=== PATIENT | male | born 1945 | race Caucasian/White ===

== ENCOUNTER 2017-06-19 14:00 | Observation (INO) | payer MEDICARE, OTHER ==
[~2017-06-19] VITALS: Ht 180.3 cm; Wt 96.7 kg
[2017-06-19] VITALS (7 sets, daily range): BP systolic 118–146; BP diastolic 67–82; PULSE 47–71; RESP 16–20; TEMP 97.7–99.3; O2SAT 88–97
[~2017-06-19 14:00] MED LIST: ALPR0.5T3 PO; CYMB30CA PO; DOFE250 PO; DONE10TA14 PO; GABA400C5 PO; METO25 PO; RIVA20 PO; SIMV5TAB3 PO; VITA100017 PO; VITATAB25 PO; ZOLP10TA3 PO
[2017-06-19] MEDS ORDERED: SODIUM CHLORIDE 0.9% FLUSH 10 ML FLUSH IVF PRN (14:30)
--- NOTE | 2017-06-19 14:31 | PD ---
HPI Chief Complaint: OD/ Ingestion Time Seen by Provider: 14:26 Travel History International Travel<30 days: No Contact w/Intl Traveler<30days: No Traveled to known affect area: No History of Present Illness HPI 61-year-old male patient with history dementia, presents to the ER today brought in by his because she states that he is more disoriented and sleepy this morning and thinks that he may have taken 3 doses of his evening medications which include Ambien, Xanax, accidentally last night. She states it would've been after 11 but she cannot confirm what time he would've taken it. She noticed that his evening medications for the next 3 days are missing. He currently does not have any significant complaints, chest pains, shortness of breath, dizziness, or other symptoms. Modifying Factors: None Associated Signs & Symptoms: Altered mental status, possible medication overdose Risk Factors: Elderly, dementia PFSH Past Medical History Arthritis: No Asthma: Yes Atrial Fibrillation: Yes (and atrial flutter) Autoimmune Disease: No Anxiety: No Depression: No Cancer: No Cardiovascular Problems: Yes (HX A-FIB) High Cholesterol: Yes Chest Pain: Yes Congestive Heart Failure: No COPD: No Cerebrovascular Accident: No Dementia: Yes Diabetes: No Diminished Hearing: Yes ([employer] HEARING AIDES) Endocrine: No Gastrointestinal Disorders: No GERD: No Gout: Yes Genitourinary: No Hiatal Hernia: Yes Herniated Disk: Yes (lumbar) Hypertension: Yes Immune Disorder: No Insomnia: Yes Musculoskeletal: Yes Neurologic: No Psychiatric: No Reproductive: No Respiratory: No Immunizations Current: Yes Migraines: No Radiation Therapy: No Seizures: No Sleep Apnea: No Thyroid Disease: No Ulcer: Yes Past Surgical History Abdominal Surgery: No Cardiac Surgery: Yes (ABLATION) Ear Surgery: No Endocrine Surgery: No Genitourinary Surgery: No Neurologic Surgery: Yes (L3-4 L4-5 S1 FUSION NOVEMBER 27) Oral Surgery: No Pacemaker: No Thoracic Surgery: Yes (LEFT LOWER LOBE REMOVED) Other Surgery: Yes (Spleen removal, portion of colon, portion L Lung) Social History Alcohol Use: Yes (2-3 BEERS NIGHTLY; 12/09/15) Tobacco Use: No (QUIT ) Substance Use: No Allergies-Medications (Allergen,Severity, Reaction): Coded Allergies: benazepril (Unverified Allergy, Severe, ANGIOEDEMA, 06/19/17) captopril (Unverified Allergy, Severe, ANGIOEDEMA, 06/19/17) enalaprilat (Unverified Allergy, Severe, ANGIOEDEMA, 06/19/17) fosinopril (Unverified Allergy, Severe, ANGIOEDEMA, 06/19/17) lisinopril (Unverified Allergy, Severe, ANGIOEDEMA, 06/19/17) penicillin G (Unverified Allergy, Severe, Anaphylaxis, 06/19/17) quinapril (Unverified Allergy, Severe, ANGIOEDEMA, 06/19/17) Reported Meds & Prescriptions Reported Meds & Active Scripts Active Reported Vitamin B-1 (Thiamine HCl) 100 Mg Tab 100 Mg PO DAILY Vitamin D3 (Cholecalciferol) 1,000 Unit Tab 1,000 Units PO DAILY Gabapentin 600 Mg Tab 1,200 Mg PO HS Duloxetine DR (Duloxetine HCl) 60 Mg Capdr 60 Mg PO DAILY Ambien (Zolpidem Tartrate) 10 Mg Tab 10 Mg PO HS Alprazolam 0.5 Mg Tab 0.5 Mg PO HS Folic Acid 0.8 Mg Tab 800 Mcg PO DAILY Xarelto (Rivaroxaban) 20 Mg Tab 20 Mg PO DAILY Simvastatin 20 Mg Tab 20 Mg PO DAILY Furosemide 40 Mg Tab 40 Mg PO DAILY PRN Amantadine (Amantadine HCl) 100 Mg Tab 100 Mg PO DAILY Vitamin C (Ascorbic Acid) 250 Mg Chew 250 Mg CHEW DAILY Diltiazem CD 24 HR 240 Mg Caper 240 Mg PO DAILY Metoprolol Tartrate 25 Mg Tab 25 Mg PO BID Review of Systems ROS Limitations: Altered Mental Status (history is as per ) Physical Exam Narrative GENERAL: Well-developed elderly white male patient currently in mild distress. Awake and oriented 1. SKIN: Focused skin assessment warm/dry. HEAD: Atraumatic. Normocephalic. EYES: Pupils equal and round. No scleral icterus. No injection or drainage. ENT: No nasal bleeding or discharge. Mucous membranes pink and moist. NECK: Trachea midline. No JVD. CARDIOVASCULAR: Regular rate and rhythm. No murmur appreciated. RESPIRATORY: No accessory muscle use. Clear to auscultation. Breath sounds equal bilaterally. GASTROINTESTINAL: Abdomen soft, non-tender, nondistended. Hepatic and splenic margins not palpable. MUSCULOSKELETAL: No obvious deformities. No clubbing. No cyanosis. No edema. NEUROLOGICAL: Awake and alert. No obvious cranial nerve deficits. Motor grossly within normal limits. Normal speech. PSYCHIATRIC: Appropriate mood and affect; insight and judgment poor. Data Data Last Documented VS Vital Signs Date Time Temp Pulse Resp B/P (MAP) Pulse Ox O2 Delivery O2 Flow Rate FiO2 06/19/17 17:15 47 18 118/67 (84) 94 Room Air 06/19/17 14:50 2.00 06/19/17 14:05 97.7 Orders Orders Electrocardiogram (06/19/17 14:26) Complete Blood Count With Diff (06/19/17 14:26) Comprehensive Metabolic Panel (06/19/17 14:26) Urinalysis - C+S If Indicated (06/19/17 14:) Chest, Single Ap (06/19/17 14:26) Ct Brain W/O Iv Contrast(Rout) (06/19/17 14:26) Iv Access Insert/Monitor (06/19/17 14:26) Ecg Monitoring (06/19/17 14:26) Oximetry (06/19/17 14:26) Sodium Chloride 0.9% Flush (Ns Flush) (06/19/17 14:30) Call Poison Control (06/19/17 14:26) Drug Screen, Random Urine (06/19/17 14:26) Alcohol (Ethanol) (06/19/17 14:26) Salicylates (Aspirin) (06/19/17 14:26) Tylenol (Acetaminophen) (06/19/17 14:26) B-Type Natriuretic Peptide (06/19/17 14:56) Labs Laboratory Tests Test 06/19/17 14:35 06/19/17 16:32 White Blood Count 12.5 TH/MM3 Red Blood Count 3.66 MIL/MM3 Hemoglobin 12.7 GM/DL Hematocrit 37.4 % Mean Corpuscular Volume 102.0 FL Mean Corpuscular Hemoglobin 34.7 PG Mean Corpuscular Hemoglobin Concent 34.0 % Red Cell Distribution Width 12.0 % Platelet Count 196 TH/MM3 Mean Platelet Volume 9.5 FL Neutrophils (%) (Auto) 71.5 % Lymphocytes (%) (Auto) 13.4 % Monocytes (%) (Auto) 13.7 % Eosinophils (%) (Auto) 0.8 % Basophils (%) (Auto) 0.6 % Neutrophils # (Auto) 8.9 TH/MM3 Lymphocytes # (Auto) 1.7 TH/MM3 Monocytes # (Auto) 1.7 TH/MM3 Eosinophils # (Auto) 0.1 TH/MM3 Basophils # (Auto) 0.1 TH/MM3 CBC Comment DIFF FINAL Differential Comment Blood Urea Nitrogen 13 MG/DL Creatinine 0.97 MG/DL Random Glucose 101 MG/DL Total Protein 7.4 GM/DL Albumin 3.5 GM/DL Calcium Level 8.6 MG/DL Alkaline Phosphatase 66 U/L Aspartate Amino Transf (AST/SGOT) 27 U/L Alanine Aminotransferase (ALT/SGPT) 47 U/L Total Bilirubin 0.9 MG/DL Sodium Level 138 MEQ/L Potassium Level 4.2 MEQ/L Chloride Level 105 MEQ/L Carbon Dioxide Level 25.2 MEQ/L Anion Gap 8 MEQ/L Estimat Glomerular Filtration Rate 77 ML/MIN B-Type Natriuretic Peptide 208 PG/ML Salicylates Level LESS THAN 1.7 MG/DL Acetaminophen Level LESS THAN 2.0 MCG/ML Ethyl Alcohol Level LESS THAN 3 MG/DL Urine Color STRAW Urine Turbidity CLEAR Urine pH 6.0 Urine Specific Ne[place] 1.012 Urine Protein NEG mg/dL Urine Glucose (UA) NEG mg/dL Urine Ketones NEG mg/dL Urine Occult Blood NEG Urine Nitrite NEG Urine Bilirubin NEG Urine Leukocyte Esterase NEG Urine Squamous Epithelial Cells 0-5 /hpf Microscopic Urinalysis Comment CULT NOT INDICATED Urine Opiates Screen NEG Urine Barbiturates Screen NEG Urine Amphetamines Screen NEG Urine Benzodiazepines Screen POS Urine Cocaine Screen NEG Urine Cannabinoids Screen NEG MDM Medical Decision Making Medical Screen Exam Complete: Yes Emergency Medical Condition: Yes Medical Record Reviewed: Yes Interpretation(s) EKG shows 9 this bradycardia at a rate of 50 bpm. No signs of acute ST-T changes. Laboratory Tests Test 06/19/17 14:35 06/19/17 16:32 White Blood Count 12.5 TH/MM3 (4.0-11.0) Red Blood Count 3.66 MIL/MM3 (4.50-5.90) Hemoglobin 12.7 GM/DL (13.0-17.0) Hematocrit 37.4 % (39.0-51.0) Mean Corpuscular Volume 102.0 FL (80.0-100.0) Mean Corpuscular Hemoglobin 34.7 PG (27.0-34.0) Neutrophils (%) (Auto) 71.5 % (16.0-70.0) Monocytes (%) (Auto) 13.7 % (0.0-8.0) Neutrophils # (Auto) 8.9 TH/MM3 (1.8-7.7) Monocytes # (Auto) 1.7 TH/MM3 (0-0.9) Estimat Glomerular Filtration Rate 77 ML/MIN (>89) B-Type Natriuretic Peptide 208 PG/ML (0-100) Salicylates Level LESS THAN 1.7 MG/DL Acetaminophen Level LESS THAN 2.0 MCG/ML Urine Benzodiazepines Screen POS (NEG) Last [address] 06/19/171425 Signed Impressions: Service Date/Time: Monday, June 19, 2017 14:40 - CONCLUSION: No acute intracranial disease. Prasad Kelly MD Chest X-Ray 06/19/171425 Signed Impressions: Service Date/Time: Monday, June 19, 2017 14:33 - CONCLUSION: Interstitial densities could be interstitial edema. Prasad Kelly MD Differential Diagnosis Altered mental status, possible overdose: Rule out coingestions versus dehydration versus metabolic issues versus acute intracranial processes Narrative Course Chest x-ray shows interstitial densities which could present some underlying interstitial edema. However, his BNP is 200. Lab work was otherwise unremarkable. Vital signs do show that he is bradycardic in the ER. Case was discussed with poison control and they state that he should be managed supportively. My plan would be to admit him as an observation for further evaluation. Case was discussed with Dr. George for admission. Diagnosis Primary Impression: Altered mental status Additional Impression: Accidental overdose Admitting Information Admitting Physician Requests: Admit Condition: Stable Celia Greenfield MD Jun 19, 2017 14:31
[2017-06-19] MEDS ORDERED: ALPR0.5T3 PO (14:33)
[2017-06-19] MEDS ORDERED: METO25TA3 PO (14:33)
[2017-06-19] MEDS ORDERED: VITA250C3 CHEW (14:33)
[2017-06-19] MEDS ORDERED: FURO40TA PO (14:33)
[2017-06-19] MEDS ORDERED: FOLI800T PO (14:33)
[2017-06-19] MEDS ORDERED: VITA100064 PO (14:33)
[2017-06-19] MEDS ORDERED: DULO1CAP3 PO (14:33)
[2017-06-19] MEDS ORDERED: XARE20TA PO (14:33)
[2017-06-19] MEDS ORDERED: AMAN100T PO (14:33)
[2017-06-19] MEDS ORDERED: SIMV20TA PO (14:33)
[2017-06-19] MEDS ORDERED: GABA600T PO (14:33)
[2017-06-19] MEDS ORDERED: AMBI10TA PO (14:33)
[2017-06-19] MEDS ORDERED: VITA100T54 PO (14:33)
[2017-06-19] MEDS ORDERED: DILT240C44 PO (14:33)
--- NOTE | 2017-06-19 14:49 | RADRPT ---
EXAM DATE/TIME: 06/19/2017 14:33 [facility] COMPARISON: CHEST SINGLE AP, December 10, 2015, 12:20. INDICATIONS : Short of breath MEDICAL HISTORY : Hypertension. Atrial fibrillation. Asthma SURGICAL HISTORY : Lobectomy. Cardiac ablation ENCOUNTER: Initial ACUITY: 1 day PAIN SCORE: 0/10 LOCATION: Bilateral chest FINDINGS: A single view of the chest demonstrates the lungs to be symmetrically aerated without evidence of mas s, infiltrate or effusion. Interstitial densities. Elevation left hemidiaphragm again seen. The card iomediastinal contours are unremarkable. Osseous structures are intact. CONCLUSION: Interstitial densities could be interstitial edema. Prasad Kelly MD on June 19, 2017 at 14:46 Board Certified Radiologist. This report was verified electronically.
--- NOTE | 2017-06-19 14:52 | RADRPT ---
EXAM DATE/TIME: 06/19/2017 14:40 [facility] COMPARISON: No previous studies available for comparison. INDICATIONS : Altered mental status after taking medications. RADIATION DOSE: 60.69 CTDIvol (mGy) MEDICAL HISTORY : Hypertension. Dementia. SURGICAL HISTORY : Splenectomy. Portion of colon removed. Portion of lung removed. Cardiac ablation. ENCOUNTER: Initial ACUITY: 1 day PAIN SCALE: 0/10 LOCATION: cranial TECHNIQUE: Multiple contiguous axial images were obtained of the head. Using automated exposure control and adj ustment of the mA and/or kV according to patient size, radiation dose was kept as low as reasonably a chievable to obtain optimal diagnostic quality images. DICOM format image data is available electro nically for review and comparison. FINDINGS: CEREBRUM: The ventricles are normal for age. No evidence of midline shift, mass lesion, hemorrhage or acute in farction. No extra-axial fluid collections are seen. POSTERIOR FOSSA: The cerebellum and brainstem are intact. The 4th ventricle is midline. The cerebellopontine angle i s unremarkable. EXTRACRANIAL: The visualized portion of the orbits is intact. SKULL: The calvaria is intact. No evidence of skull fracture. CONCLUSION: No acute intracranial disease. Prasad Kelly MD on June 19, 2017 at 14:49 Board Certified Radiologist. This report was verified electronically.
[2017-06-19 14:58] LABS: CHLORIDE 105 MEQ/L (98-107); POTASSIUM 4.2 MEQ/L (3.5-5.1); SODIUM (NA) 138 MEQ/L (136-145)
[2017-06-19 14:59] LABS: AUTOMATED NEUTROPHIL # 8.9 TH/MM3 (1.8-7.7); BASOPHIL # 0.1 TH/MM3 (0-0.2); BASOPHIL % 0.6 % (0.0-2.0); EOSINOPHIL # 0.1 TH/MM3 (0-0.4); EOSINOPHIL % 0.8 % (0.0-4.0); HEMATOCRIT 37.4 % (39.0-51.0); HEMO FLAGS DIFF FINAL; LYMPH % 13.4 % (9.0-44.0); LYMPHOCYTE # 1.7 TH/MM3 (1.0-4.8); MEAN CORPUSCULAR HEMOGLOBIN 34.7 PG (27.0-34.0); MONO % 13.7 % (0.0-8.0); NEUT % 71.5 % (16.0-70.0); PLATELET COUNT 196 TH/MM3 (150-450); RED BLOOD COUNT 3.66 MIL/MM3 (4.50-5.90); WHITE BLOOD COUNT 12.5 TH/MM3 (4.0-11.0)
[2017-06-19 15:01] LABS: ANION GAP 8 MEQ/L (5-15); BICARBONATE 25.2 MEQ/L (21.0-32.0); BLOOD UREA NITROGEN 13 MG/DL (7-18)
[2017-06-19 15:03] LABS: ALCOHOL LESS THAN 3 MG/DL (0-5)
[2017-06-19 15:04] LABS: ALT (GPT) 47 U/L (12-78); AST (GOT) 27 U/L (15-37); GLOMERULAR FILTRATION RATE 77 ML/MIN (>89)
[2017-06-19 15:06] LABS: TOTAL BILIRUBIN ADULT 0.9 MG/DL (0.2-1.0)
[2017-06-19 15:07] LABS: ALKALINE PHOSPHATASE 66 U/L (45-117)
[2017-06-19 16:21] LABS: ACETAMINOPHEN LESS THAN 2.0 MCG/ML (10.0-30.0)
[2017-06-19 17:01] LABS: BLOOD, URINE NEG (NEG); GLUCOSE,URINE NEG (NEG); KETONE, URINE NEG (NEG); NITRITE,URINE NEG (NEG)
[2017-06-19 17:08] LABS: SQUAMOUS EPITHELIAL CELL URINE 0-5 /hpf (0-5); URINE COLOR STRAW (YELLW/STRAW)
[2017-06-19 17:09] LABS: COMMENT (UR) CULT NOT INDICATED; CULTURE IF INDICATED CULT NOT INDICATED
[2017-06-19] MEDS ORDERED: SODIUM CHLOR 0.9% 1000 ML INJ 1,000 ML IV ONE (17:30)
[2017-06-19] MEDS ORDERED: FUROSEMIDE 40 MG TAB PO PRN (19:30)
[2017-06-19] MEDS ORDERED: PILL SPLITTER OTHER PRN (19:30)
[2017-06-19] MEDS ORDERED: RESP: ALBUTEROL 2.5 MG/3 ML NEB (PRN) NEB (19:45)
[2017-06-19] MEDS ORDERED: methylPREDNISolone SOD SUCC 125 MG/2 ML VIAL IV PUSH ONE (19:45)
--- NOTE | 2017-06-19 19:54 | HHI.HP ---
HPI Service [facility] Primary [facility] Physician Antoni Bar MD Admission Diagnosis accidental overdose of medications/bradycardia Diagnoses: Chief Complaint: Possible accidental overdose medications Travel History International Travel<30 Days: No Contact w/Intl Traveler <30 Da: No Traveled to Known Affected Are: No History of Present Illness 71-year-old white male being admitted for suspected accidental overdose of [employer] CENTER [employer]GER depressants. Patient was in his usual state of health until late last night or early this morning when his noticed that he was very disoriented. During the sleeping hours heard the patient trying to exit their condo and she quickly got up and escorted him back inside their home. She said that he made statements that were clear but were evident of significant disorientation, such as he was talking about when they would go back to [place] when that was clearly not a concern at the time. The took him back escorted him back to bed and noticed he had a staggering gait, and the patient went to sleep. The patient slept significantly longer than usual and that's when the noticed that the patient had three nights worth of medications missing namely his Ambien Xanax and gabapentin. At that point she decided bring to the emergency room. The patient himself currently says he has no recollection of any of this and denies experiencing any headaches, nausea, vomiting, fevers, chest pain, or focal numbness or tingling. He does report having a runny nose a few days ago and the says she is hurt him start to wheeze 2 days ago with slightly labored breathing. Prior to this earlier in the week the patient was going for a lumbar ablation for chronic back pain which was aborted due to tachycardia. He was transferred downstairs to the emergency room within the [place] facility where he was originally scheduled to have his procedure and observed and had his tachycardia stabilized and then the patient was sent home. Review of Systems Except as stated in HPI: all other systems reviewed are Neg Past Family Social History Past Medical History Chronic back pain, hypertension, afib Past Surgical History L3-4 L4-5 S1 FUSION NOVEMBER 27 LEFT LOWER LOBE REMOVED Spleen removal, portion of colon, portion L Lung Allergies: Coded Allergies: benazepril (Unverified Allergy, Severe, ANGIOEDEMA, 06/19/17) captopril (Unverified Allergy, Severe, ANGIOEDEMA, 06/19/17) enalaprilat (Unverified Allergy, Severe, ANGIOEDEMA, 06/19/17) fosinopril (Unverified Allergy, Severe, ANGIOEDEMA, 06/19/17) lisinopril (Unverified Allergy, Severe, ANGIOEDEMA, 06/19/17) penicillin G (Unverified Allergy, Severe, Anaphylaxis, 06/19/17) quinapril (Unverified Allergy, Severe, ANGIOEDEMA, 06/19/17) Family History htn Social History Used to smoke, 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 EYES: Pupils equal and round. No scleral icterus. No injection or drainage. ENT: No nasal bleeding or discharge. Mucous membranes pink and moist. CARDIOVASCULAR: Regular rate and rhythm. no murmurs RESPIRATORY: No accessory muscle use. Mild expiratory wheezing with prolonged expiratory phase and slightly diminished breath sounds in bases GASTROINTESTINAL: Abdomen soft, non-tender, nondistended. Extremities: No clubbing, cyanosis, or edema. No obvious deformities. MUSCULOSKELETAL: . No obvious deformities. grossly intact ROM with 5/5 strength in upper and lower extremities proximally. Intact finger to nose to finger touch bilaterally. NEUROLOGICAL: Awake and alert. No obvious cranial nerve deficits. No facial droop nor slurred speech noted. PSYCHIATRIC: Appropriate mood and affect; insight and judgment normal. AOX3. Laboratory Laboratory Tests Test 06/19/17 14:35 06/19/17 16:32 White Blood Count 12.5 Red Blood Count 3.66 Hemoglobin 12.7 Hematocrit 37.4 Mean Corpuscular Volume 102.0 Mean Corpuscular Hemoglobin 34.7 Mean Corpuscular Hemoglobin Concent 34.0 Red Cell Distribution Width 12.0 Platelet Count 196 Mean Platelet Volume 9.5 Neutrophils (%) (Auto) 71.5 Lymphocytes (%) (Auto) 13.4 Monocytes (%) (Auto) 13.7 Eosinophils (%) (Auto) 0.8 Basophils (%) (Auto) 0.6 Neutrophils # (Auto) 8.9 Lymphocytes # (Auto) 1.7 Monocytes # (Auto) 1.7 Eosinophils # (Auto) 0.1 Basophils # (Auto) 0.1 CBC Comment DIFF FINAL Differential Comment Blood Urea Nitrogen 13 Creatinine 0.97 Random Glucose 101 Total Protein 7.4 Albumin 3.5 Calcium Level 8.6 Alkaline Phosphatase 66 Aspartate Amino Transf (AST/SGOT) 27 Alanine Aminotransferase (ALT/SGPT) 47 Total Bilirubin 0.9 Sodium Level 138 Potassium Level 4.2 Chloride Level 105 Carbon Dioxide Level 25.2 Anion Gap 8 Estimat Glomerular Filtration Rate 77 B-Type Natriuretic Peptide 208 Salicylates Level LESS THAN 1.7 Acetaminophen Level LESS THAN 2.0 Ethyl Alcohol Level LESS THAN 3 Urine Color STRAW Urine Turbidity CLEAR Urine pH 6.0 Urine Specific Malone 1.012 Urine Protein NEG Urine Glucose (UA) NEG Urine Ketones NEG Urine Occult Blood NEG Urine Nitrite NEG Urine Bilirubin NEG Urine Leukocyte Esterase NEG Urine Squamous Epithelial Cells 0-5 Microscopic Urinalysis Comment CULT NOT INDICATED Urine Opiates Screen NEG Urine Barbiturates Screen NEG Urine Amphetamines Screen NEG Urine Benzodiazepines Screen POS Urine Cocaine Screen NEG Urine Cannabinoids Screen NEG Result Diagram: 06/19/17 1435 06/19/17 1435 Caprini VTE Risk Assessment Caprini VTE Risk Assessment: Mod/High Risk (score >= 2) Caprini Risk Assessment Model Point Value = 1 Point Value = 2 Point Value = 3 Point Value = 5 Age 41-60 Minor surgery BMI > 25 kg/m2 Swollen legs Varicose veins or History of unexplained or recurrent spontaneous Oral contraceptives or hormone replacement Sepsis (< 1 month) Serious lung disease, including pneumonia (< 1 month) Abnormal pulmonary function Acute myocardial infarction Congestive heart failure (< 1 month) History of inflammatory bowel disease Medical patient at bed rest Age 61-74 Arthroscopic surgery Major open surgery (> 45 min) Laparoscopic surgery (> 45 min) Malignancy Confined to bed (> 72 hours) Immobilizing plaster cast Central venous access Age >= 75 History of VTE Family history of VTE Factor V Leiden Prothrombin [id number] Lupus anticoagulant Anticardiolipin antibodies Elevated serum homocysteine Heparin-induced thrombocytopenia Other congenital or acquired thrombophilia Stroke (< 1 month) Elective arthroplasty Hip, pelvis, or leg fracture Acute spinal cord injury (< 1 month) Prophylaxis Regimen Total Risk Factor Score Risk Level Prophylaxis Regimen 0-1 Low Early ambulation 2 Moderate Order ONE of the following: *Sequential Compression Device (SCD) *Heparin 5000 units SQ BID 3-4 Higher Order ONE of the following medications: *Heparin 5000 units SQ TID *Enoxaparin/Lovenox 40 mg SQ daily (WT < 150 kg, CrCl > 30 mL/min) *Enoxaparin/Lovenox 30 mg SQ daily (WT < 150 kg, CrCl > 10-29 mL/min) *Enoxaparin/Lovenox 30 mg SQ BID (WT < 150 kg, CrCl > 30 mL/min) AND/OR *Sequential Compression Device (SCD) 5 or more Highest Order ONE of the following medications: *Heparin 5000 units SQ TID (Preferred with Epidurals) *Enoxaparin/Lovenox 40 mg SQ daily (WT < 150 kg, CrCl > 30 mL/min) *Enoxaparin/Lovenox 30 mg SQ daily (WT < 150 kg, CrCl > 10-29 mL/min) *Enoxaparin/Lovenox 30 mg SQ BID (WT < 150 kg, CrCl > 30 mL/min) AND *Sequential Compression Device (SCD) Assessment and Plan Assessment and Plan Suspected accidental overdose of [employer] depressants of Xanax Ambien and gabapentin - Discussed with emergency room practitioner, post control already contacted and recommended supportive care - I will start IV fluids and place patient on telemetry - Currently he is hemodynamically stable and okay for MedSurg - EKG was obtained stat and my independent review which shows normal sinus rhythm - Fall precautions Wheezing - I independently reviewed the chest x-ray and at best the patient may possibly have very minimal pulmonary edema but clinically there is no correlation to this on exam - Possible acute viral bronchitis versus medication - We'll start Solu-Medrol and duo nebs and as needed albuterol Hypertension - Resume home blood pressure medications tomorrow Chronic back pain - Holding home gabapentin in light of suspected overdose Insomnia - Holding home Ambien in light of suspected overdose - They consider melatonin tonight instead if the patient has significant insomnia Christopher Lanza MD Jun 19, 2017 19:54
[2017-06-19] MEDS: RESP: ALBUTEROL 2.5 MG/IPRATROPIUM 0.5 MG NEB (SCH) NEB ×2 (20:24→22:50)
[2017-06-19] MEDS ORDERED: FUROSEMIDE 40 MG/4 ML VIAL IV PUSH ONE (23:30)
[2017-06-20] VITALS (13 sets, daily range): BP systolic 123–142; BP diastolic 62–74; PULSE 80–189; RESP 12–35; TEMP 97.9–100; O2SAT 92–97
[2017-06-20] MEDS: RESP: ALBUTEROL 2.5 MG/IPRATROPIUM 0.5 MG NEB (SCH) NEB ×4 (04:19→15:52)
[2017-06-20] MEDS ORDERED: methylPREDNISolone SOD SUCC 125 MG/2 ML VIAL IV PUSH SCH (06:00)
[2017-06-20 06:25] LABS: AUTOMATED NEUTROPHIL # 7.8 TH/MM3 (1.8-7.7); BASOPHIL % 0.2 % (0.0-2.0); HEMO FLAGS DIFF FINAL; LYMPH % 5.4 % (9.0-44.0); LYMPHOCYTE # 0.5 TH/MM3 (1.0-4.8); MEAN CELL VOLUME 102.1 FL (80.0-100.0); MEAN CORPUSCULAR HEMOGLOBIN 34.4 PG (27.0-34.0); MEAN CORPUSCULAR HGB CONC 33.7 % (32.0-36.0); MONO % 1.4 % (0.0-8.0); PLATELET COUNT 215 TH/MM3 (150-450); RED BLOOD COUNT 3.63 MIL/MM3 (4.50-5.90); WHITE BLOOD COUNT 8.4 TH/MM3 (4.0-11.0)
[2017-06-20 07:53] LABS: BLOOD GAS BASE EXCESS -2.1 mmol/L (-2-2); BLOOD GAS CARBOXYHEMOGLOBIN 1.5 % (0-4); BLOOD GAS HCO3 22 mmol/L (22-26); BLOOD GAS O2 HGB SATURATION 96 % (90-100); BLOOD GAS OXYGEN CONTENT 17.3 Vol % (12.0-20.0); BLOOD GAS PCO2 32 mmHG (38-42); BLOOD GAS PO2 97 mmHG (61-120); BLOOD GAS TOTAL HGB 12.8 G/DL (12.0-16.0); CRITICAL VALUE NO; DRAW SITE RT RADIAL; FIO2 3 %; OXYGEN DEVICE NASAL CANNULA; TEMP CORR TO 98.6
[2017-06-20 07:54] LABS: NUMBER OF ARTERIAL PUNCTURES 1; STAT YES; ULNAR PULSE Y
[2017-06-20] MEDS ORDERED: DILTIAZEM HCL 25 MG/5 ML VIAL IV PRN (08:15)
--- NOTE | 2017-06-20 08:26 | RADRPT ---
EXAM DATE/TIME: 06/20/2017 08:07 [facility] COMPARISON: CHEST SINGLE AP, December 10, 2015, 12:20. CHEST SINGLE AP, June 19, 2017, 1 4:33. INDICATIONS : Congestion. MEDICAL HISTORY : Hypercholesterolemia. Hiatal hernia. Ulcers. Hypertension. Dementia. Gout. A- Fib. SURGICAL HISTORY : Fusion, lumbar. Splenectomy. Portion of colon removed. Left lower lobectomy. Cardiac ablation. ENCOUNTER: Subsequent ACUITY: 2 days PAIN SCORE: 0/10 LOCATION: chest FINDINGS: Stable elevation of the left hemidiaphragm. Mild airspace disease in the posterior left lung base. Mi ld diffuse interstitial prominence. Cardiomediastinal contours are stable. Remainder of the exam is u nchanged. CONCLUSION: 1. Stable elevation of left hemidiaphragm with mild more prominent airspace disease in the posterior left lung base. The airspace disease may be better visualized given differences in technique compared to prior exams. However, developing airspace disease in the left posterior lower lobe cannot be excl uded. 2. Redemonstration of mild diffuse interstitial prominence which may reflect positive fluid balance o r interstitial pneumonia. Shane Hernandez MD on June 20, 2017 at 8:20 Board Certified Radiologist. This report was verified electronically.
[2017-06-20] MEDS ORDERED: THIAMINE HCL 100 MG TAB PO SCH (09:00)
[2017-06-20] MEDS ORDERED: CHOLECALCIFEROL (VIT D3) 1000 UNIT TAB PO SCH (09:00)
[2017-06-20] MEDS ORDERED: FOLIC ACID 1 MG TAB PO SCH (09:00)
[2017-06-20] MEDS ORDERED: ASCORBIC ACID 500 MG TAB PO SCH (09:00)
[2017-06-20] MEDS ORDERED: ENOXAPARIN SODIUM 30 MG/0.3 ML SYRINGE SQ SCH (11:00)
[2017-06-20] MEDS ORDERED: METOPROLOL TARTRATE 25 MG TAB PO SCH (11:00)
--- NOTE | 2017-06-20 11:49 | EKG ---
Date Performed: 06/19/2017 Time Performed: 14:56:19 PTAGE: 71 years EKG: SINUS BRADYCARDIA WITH SINUS ARRHYTHMIA BORDERLINE ECG Compared to prior tracing no signifi cant change PREVIOUS TRACING : 04/22/2016 15.00 DOCTOR: Pedro Maciel Interpretating Date/Time 06/20/2017 11:48:45
[2017-06-20] MEDS ORDERED: CLINDAMYCIN 900 MG/NS PREMIX 50 ML IV SCH (13:00)
[2017-06-20] MEDS ORDERED: DILTIAZEM-CD 240 MG CAP ER PO SCH (13:00)
--- NOTE | 2017-06-20 14:01 | HHI.PR ---
Subjective Remarks RN reports that the patient got very confused last night, was playing with his oxygen, potentially ripping out his IV. He was attending a walk around, was disoriented. It is unclear as to the whether the patient truly was desaturating or not into the 80s since they said they needed him on 3 L than 4 L and 6 L and then back down to 3 L. The ABG that they obtain on 3 L nasal cannula this morning was unremarkable. The chest x-ray shows no new significant findings with the possibility of the left lower lobe new infiltrate. There have been no fevers overnight. While he was being moved up to the intensive care unit the patient's heart rate per nursing went to the 150s and even up to the 190/200s- at which point it instructed them to give a 10 mg IV Cardizem bolus which significantly improved his heart rate. I saw the patient in the elevator coming up this morning and he was on room air seen to be in no acute distress and was very pleasant with the instructional technology coordinator. I reevaluated the patient again in the ICU to where he was transferred. At that time he was unlabored, his says he was doing better. His heart rate was less than 100 and he was actually saturating well on room air successfully. Patient is very pleasant, is noncombative at all. It is not clear however if his hearing is too poor or he is actually still confused since when asked where he was he said he was in [place] but then he said he was in the [facility] as well. Objective Vital Signs Date Time Temp Pulse Resp B/P (MAP) Pulse Ox O2 Delivery O2 Flow Rate FiO2 06/20/17 12:00 92 27 134/69 (90) 96 06/20/17 11:48 97 Nasal Cannula 2.00 06/20/17 11:00 92 12 128/64 (85) 95 06/20/17 08:30 95 Nasal Cannula 6.00 06/20/17 08:25 98.8 106 142/70 (94) 06/20/17 08:08 189 06/20/17 08:00 97.9 95 18 133/71 (91) 95 06/20/17 07:30 95 Nasal Cannula 3.00 06/20/17 04:00 100.0 85 18 123/62 (82) 96 06/20/17 02:09 94 Nasal Cannula 3.50 06/20/17 00:00 100.0 85 18 123/62 (82) 92 06/19/17 23:17 99.3 71 20 142/82 (102) 93 06/19/17 20:24 93 Nasal Cannula 6.00 06/19/17 20:00 98.5 52 18 146/81 (102) 88 06/19/17 18:23 06/19/17 18:11 50 97 Nasal Cannula 2.00 06/19/17 17:15 47 18 118/67 (84) 94 Room Air 06/19/17 14:50 97 Nasal Cannula 2.00 06/19/17 14:05 97.7 59 16 141/74 (96) 90 I/O 06/19/17 06/19/17 06/19/17 06/20/17 06/20/17 06/20/17 07:00 15:00 23:00 07:00 15:00 23:00 Intake Total 1000 ml 480 ml Output Total 525 ml 3600 ml Balance 475 ml -3120 ml Intake Oral 480 ml IV Total 1000 ml Output Urine Total 525 ml 3600 ml # Bowel Movements 0 Result Diagram: 06/20/17 0535 06/19/17 1435 Objective Remarks Unlabored breathing, awake, alert Lungs are actually clear today, good breath sounds bilaterally with no focal crackles or rales Heart rate is regular rate and rhythm A/P Assessment and Plan Accidental overdose - Status post IV fluids, at this rate the patient I believe is outside the window of any significant residual symptoms that could have been caused by his suspected initial ingestion of gabapentin Ambien and Xanax. Tachycardia - This was most likely due to the patient's home medications and being restarted which I initially held because I was concerned about potential hemodynamic compromises given his initial accidental overdose. It has significantly improved with Cardizem and I have restarted his by mouth Cardizem and his metoprolol. Otherwise recommendation I have reached out to his blender conveyor operator and am waiting for him to call back to see if he wants to restart the patient's Tikosyn (since that was what the patient was originally on before he was swapped over to Cardizem and metoprolol at his emergency room encounter at the [facility] last Monday). We will do a walk test to assess the patient's pulse ox and his heart rate . Confusion - I suspect this is mostly from hospital induced delirium and ICU delirium as the patient has no other acute obvious medical organic causes, as mentioned above his overdose is not likely the cause of his current symptoms this morning. Addendum: Patient's tachycardia complete resolved. He tolerated a walk test with good saturations above 92% and his heart rate never went to the 100s since this extended release Cardizem and lopressor were restarted. Case was discussed with patient's blender conveyor operator at the request of the patient's . Civil Cad Designer recommended against starting Tikosyn upon discharge since this is a medication needs to be started inpatient and monitored for 2-3 days. Telemetry strips showing A. fib were also discussed with him and this was confirmed to be A. fib with aberrancy per cardiology. Clearance was obtained from cardiology to discharge patient on Cardizem and metoprolol tartrate. Patient did have a little episode of disorientation but no issues with combativeness that was mild and very manageable by the . was counseled extensively that the patient was likely experiencing hospital induced delirium and ICU induced delirium. I informed her that she could potentially administer when necessary quetiapine 25 mg up to once a day at home should the patient show significant disorientation and agitation. I also informed her that she could administer the antibiotics of Levaquin should the patient spike a fever at home about 100.4 or higher in case he has a bacterial respiratory process associated to his bronchitis which is already shown significant improvement. Patient has remained afebrile throughout his entire hospitalization and has sustained good respiratory status overall. Patient were counseled on the importance of good follow-up this week with his outpatient provider. The patient's agitation and severe disorientation had resolved hours before discharge. I spoke to the and patient and informed about the importance of keeping medications a safe place in case the patient should again have another bout of confusion thereby minimizing the likelihood of overdosing again. Patient did not vocalize or did not exhibit any signs or symptoms of suicidality or deliberate self neglect during his inpatient care. Patient has met maximum benefit from hospitalization and is clinically stable for discharge. Christopher George MD Jun 20, 2017 14:01
[2017-06-20 14:30] LABS: CHLORIDE 104 MEQ/L (98-107); POTASSIUM 3.5 MEQ/L (3.5-5.1); SODIUM (NA) 138 MEQ/L (136-145)
[2017-06-20] MEDS ORDERED: QUEtiapine FUMARATE 25 MG TAB PO SCH (14:30)
[2017-06-20 14:33] LABS: ANION GAP 10 MEQ/L (5-15); BICARBONATE 23.7 MEQ/L (21.0-32.0)
[2017-06-20 14:34] LABS: BLOOD UREA NITROGEN 16 MG/DL (7-18)
[2017-06-20 14:36] LABS: ALT (GPT) 36 U/L (12-78)
[2017-06-20 14:37] LABS: AST (GOT) 21 U/L (15-37); GLOMERULAR FILTRATION RATE 75 ML/MIN (>89)
[2017-06-20 14:38] LABS: TOTAL BILIRUBIN ADULT 0.7 MG/DL (0.2-1.0)
[2017-06-20 14:39] LABS: ALKALINE PHOSPHATASE 54 U/L (45-117)
[2017-06-20] MEDS ORDERED: SERO25TA PO (15:20)
[2017-06-20] MEDS ORDERED: LEVA750T9 PO (15:20)
--- NOTE | 2017-06-20 15:21 | HHI.DCPOC ---
Discharge Care Plan Diagnosis: (1) Atrial fibrillation (2) Accidental overdose Goals to Promote Your Health * To prevent worsening of your condition and complications * To maintain your health at the optimal level Directions to Meet Your Goals Take your medications as prescribed Follow your dietary instruction Follow activity as directed Keep your appointments as scheduled Take your immunizations and boosters as scheduled If your symptoms worsen call your PCP, if no PCP go to Urgent Care Center or Emergency Room Smoking is Dangerous to Your Health. Avoid second hand smoke Call the 24-hour hour crisis hotline for domestic abuse at Christopher George MD Jun 20, 2017 15:21
[2017-06-20] MEDS ORDERED: PRED5PAK2 PO (15:23)
[2017-06-21] MEDS ORDERED: AMANTADINE HCL 100 MG CAP PO SCH (09:00)
== END 2017-06-20 14:45 | disposition home or self-care (01) ==
LOC: PHED 14:00 → PHEDA 17:27 → PH3B 18:57 → PHICU 06-20 08:18
PROVIDERS: ADMIT Hospitalist; ATTEND Hospitalist
DX: T42.4X1A Poisoning by benzodiazepines, accidental (unintentional), initial encounter (principal); T42.6X1A Poisoning by other antiepileptic and sedative-hypnotic drugs, accidental (unintentional), initial encounter; I48.91 Unspecified atrial fibrillation; I48.92 Unspecified atrial flutter; R00.1 Bradycardia, unspecified; R06.02 Shortness of breath; I10 Essential (primary) hypertension; M54.5 Low back pain; G89.29 Other chronic pain; G47.00 Insomnia, unspecified; J45.909 Unspecified asthma, uncomplicated; E78.00 Pure hypercholesterolemia, unspecified; F03.90 Unspecified dementia, unspecified severity, without behavioral disturbance, psychotic disturbance, mood disturbance, and anxiety; H91.90 Unspecified hearing loss, unspecified ear; Z79.899 Other long term (current) drug therapy; Z87.891 Personal history of nicotine dependence; Z90.81 Acquired absence of spleen; Z98.1 Arthrodesis status
CPT/HCPCS: 36600; 70450; 71010; 71020; 80053; 80307; 81001; 82140; 82805; 83880; 85025; 93005; 94640; 94664; 96361; 96372; 96374; 96375; 96376; 99285; G0378; J1650; J1940; J2930; J7030